=== PATIENT | male | born 1990 | race Asian ===

== ENCOUNTER 2024-12-21 21:10 | Emergency (ER) | payer BC ==
[~2024-12-21] VITALS: Ht 175.3 cm; Wt 117.9 kg
[2024-12-21 21:48] LABS: CLARITY,URINE CLOUDY (Clear); COLOR,URINE RED (Yellow)
[2024-12-21 21:59] LABS: UA COLLECTION TYPE CLN CATCH MIDSTREAM
[2024-12-21 22:00] LABS: RBC,URINE TNTC /HPF (0-2); WBC,URINE NONE SEEN /HPF (0-4)
[2024-12-21 22:01] LABS: BACTERIA,URINE NONE SEEN /HPF (Neg)
[2024-12-21 22:02] LABS: SQUAMOUS EPITHELIAL CELL,UR NONE SEEN /LPF (FEW)
--- NOTE | 2024-12-21 23:00 | Physician Documentation ---
History of Present Illness ~ Chief Complaint: Blood in Urine Stated Complaint: BLOOD IN URINE Time Seen by MD: 22:43 HPI This is a 34-year-old male who presents after an episode of painful hematuria, patient reports that he urinated earlier today noticing some blood in his urine along with some urethral pain and a feeling of difficulty urinating described as a blockage, patient reports he needed a few minutes in urinated again and again experienced some urethral pain and then passed a blood clot which he fished out of the toilet and described as squishy. Patient reports blood in his urine though no pain after passing this clot, patient reports that every time he urinated the blood in his urine became less concentrated and his most recent episode of urination there was no noticeable blood in his urine. Patient reports no other symptoms or concerns including no abdominal pain back pain, or fevers. Medication Reconciliation Allergies: Coded Allergies: No Known Allergies (Unverified , 12/21/24) Past Medical History Past Medical History: No Pertinent History Review of Systems ROS Blood in urine as stated above in the HPI, otherwise all systems are reviewed and negative. Physical Exam Vital Signs: Temperature: 99.3, Source: Oral, Heart Rate: 98, Respiratory Rate: 16, BP: 153/99, Pulse Oximetry: 95, Weight: 117.900 Oxygen Flow Rate: 0 Physical Exam VITALS: Reviewed and as above. GENERAL: Alert, nontoxic appearing, no apparent distress. RESPIRATORY: No increased work of breathing, no respiratory distress, speaking in full clear sentences BACK: No CVA tenderness GI: Nondistended, nontender to palpation Progress Results/Orders Results/Orders Vital Signs 12/21/24 12/21/24 12/21/24 21:12 23:50 23:54 Temp 99.3 97.5 Pulse 98 81 Resp 16 18 18 B/P (MAP) 153/99 135/98 (110) Pulse Ox 95 98 O2 Flow Rate 0 Laboratory Tests Test 12/21/24 21:16 Urine Specimen Description Cln catch midstream Urine Color Red Urine Clarity Cloudy Urine pH Urine Specific [place] Urine Protein Urine Glucose (UA) Urine Ketones Urine Occult Blood Urine Nitrite Urine Bilirubin Urine Urobilinogen Urine Leukocyte Esterase Urine RBC Tntc Urine WBC None seen Urine Squamous Epithelial Cells None seen Urine Bacteria None seen Urine Culture Indicated Not ind Volume Urine Centrifuged 10 ml Urine Comment See note Medical Decision Making Findings This is a 34-year-old male presented with concern for blood in his urine, patient had had episode of urethral pain and passed any clots, urinalysis did demonstrate some evidence of hematuria though there was no evidence of urinary tract infection, it was reassuring the patient reported that pain in his urethra is relieved in his no longer observing blood in his urine, I suspect the patient may have passed a stone which caused urethral trauma and bleeding though all causes can not be ruled out, patient is hemodynamically stable, otherwise well-appearing and had a benign physical exam and is appropriate for outpatient follow up. Patient provided contact information for urologist follow up and was instructed to follow up with urologist in the next few days as all serious causes of criteria could not be ruled out including possible malignancy, patient provided home care instructions and [facility] precautions which she v erbalized understanding of. Urinary Diff Dx:Considerations: Include: Prostatitis, Pyelonephritis, Renal fa ilure, Renal infarction, Urolithiasis, Urinary Obstruction, Urethritis, Urinary retention, UTI Departure Time of Disposition: 23:06 Disposition: 01 HOME / SELF CARE / HOMELESS Impression: Primary Impression: Hematuria Qualified Codes: R31.0 - Gross hematuria Condition: Improved Discharge Instructions: Hematuria, Adult Additional Instructions: It is reassuring your urine is no longer having blood in it and you are no longer experiencing pain, please follow up with the urologist at the number provided. Please also follow up with a primary care provider in the next few days. Please return to the emergency department for any new or worsening concerning symptoms. Referrals: NO PRIMARY CARE PROVIDER (PCP) BARB MARCELINO MD Education Educated: Patient Educated regarding: diagnosis, treatment, prognosis, need for follow up Signature Scribe Signature: No scribe Attestation: The note accurately reflects work and decisions made by me.KERRY Mobley 12/22/24 02:52 STEVEN YOUNGER December 21, 2024 23:00
[2024-12-21 23:54] VITALS: BP 135/98; PULSE 81; RESP 18; TEMP 97.5; O2SAT 98
== END 2024-12-22 | disposition home or self-care (01) ==
LOC: ER 21:11
DX: R31.9 Hematuria, unspecified (principal)
CPT/HCPCS: 81001; 99283